=== PATIENT | female | born 1970 | race Caucasian/White ===

== ENCOUNTER 2022-11-30 12:33 | Outpatient (CLI) | payer OTHER, SELFPAY ==
--- NOTE | 2022-11-30 14:35 | W.ANESCHARGE ---
Anesthesia Charges Start Date/Time Anesthesia Start Date: 11/30/22 Anesthesia Start Time: 14:03 Stop Date/Time Anesthesia Stop Date: 11/30/22 Anesthesia Stop Time: 14:33
== END 2022-11-30 12:34 | disposition home or self-care (01) ==
PROVIDERS: PCP Student in an Organized Health Care Education/Training Program; Visit Provider Internal Medicine Gastroenterology
DX: Z12.11 Encounter for screening for malignant neoplasm of colon (principal); K63.5 Polyp of colon; K57.30 Diverticulosis of large intestine without perforation or abscess without bleeding; Z83.71 Family history of colonic polyps
CPT/HCPCS: 45385; 811; 88305; J2704